=== PATIENT | female | born 1950 | race Caucasian/White ===

== ENCOUNTER 2020-05-25 15:27 | Inpatient (IN) | payer OTHER, MEDICARE, SELFPAY ==
[2020-05-25] VITALS (14 sets, daily range): BP systolic 109–150; BP diastolic 59–114; PULSE 68–185; RESP 15–52; TEMP 35.7–37; O2SAT 95–99; BMI 25.2
--- NOTE | ~2020-05-25 | XR_ITS ---
EXAMINATION: XR chest 1V portable INDICATION: Tachycardia and shortness of breath TECHNIQUE: Portable AP chest at 1556 hours COMPARISON: None available FINDINGS: There is mild atelectasis of the left lung base. No pleural effusion or pneumothorax is butch ntified. The cardiomediastinal silhouette is normal. 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 IMPRESSION: 1. Mild atelectasis of the left lung base. Reviewed, dictated and finalized at location A.
--- NOTE | 2020-05-25 15:42 | ECG_ITS ---
Measurements Intervals [place] Rate: 166 P: [place]: 0 QRS: -81 QRSD: 81 T: 48 QT: 256 QTc: 426 Interpretive Statements ATRIAL FIBRILLATION WITH RAPID VENTRICULAR RESPONSE VENTRICULAR PREMATURE COMPLEX LEFT AXIS DEVIATION CONSIDER ANTEROSEPTAL INFARCT, AGE INDETERMINATE BORDERLINE ST ABNORMALITY- ANTEROLAT/INF LEADS BASELINE ARTIFACT- I, II, III, AVR, AVL, AVF, V1-V2 ABNORMAL ECG Electronically Signed On 05-25-2020 16:47:50 CDT by Joshua Crawford D.O.
[2020-05-25] MEDS: SODIUM CHLORIDE 0.9% IV 1,000 ML 500 ML IV CONT (15:53)
[2020-05-25] MEDS: dilTIAZem HCl INJ 25 MG/5 ML VIAL 10 MG IV PUSH (15:53)
--- NOTE | 2020-05-25 15:56 | ED.ARRPALP ---
HPI - Arrhythmia/Palpitations General Chief Complaint: Arrhythmia/Palpitations Stated Complaint: abd pain Time Seen by Provider: 05/25/20 15:41 Source: patient Mode of arrival: ambulatory Limitations: no limitations History of Present Illness HPI narrative: Patient presents with palpitations and shortness of breath. Yesterday she had lower abdominal pain which she thought would be her diverticulitis. That pain has mostly resolved although she has a little bit of discomfort in her lower left back when she twists. She had no fever, chills or sweats. Then today she had palpitations and was coming in for, when she became short of breath. She has not had A. fib before. 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 complaint: rapid heart beat, heart racing and palpitations Onset (ago): hour(s) Duration: constant Severity: moderate Context: occurred during rest Arrhythmia history: other (None) Associated symptoms: denies other symptoms Treatments prior to arrival: other (None) Related Data Allergies Allergy/AdvReac Type Severity Reaction Status Date / Time No Known Allergies Allergy Verified 05/25/20 15:45 Review of Systems Review of Systems: Narrative: CONSTITUTIONAL: Denies fever, chills, or sweats. ENT: Denies rhinorrhea, congestion, sore throat, or otalgia. CARDIOVASCULAR: Denies chest pain, palpitations, or edema. RESPIRATORY: Denies cough or dyspnea. GASTROINTESTINAL: Denies abdominal pain, nausea, vomiting, or diarrhea. MUSCULOSKELETAL: Denies back pain, joint pain, or myalgia. NEUROLOGIC: Denies headache, numbness, or weakness. All systems reviewed & are unremarkable except as noted in HPI and below PMFSH Past Medical History Medical History (Updated 05/25/20 @ 16:35 by Merry Tinoco MD) Atrial fibrillation with rapid ventricular response Surgical History Surgical History (Updated 05/25/20 @ 16:08 by Merry Tinoco MD) History of knee surgery History of lumpectomy Social History Social History (Updated 05/25/20 @ 16:09 by Merry Tinoco MD) Smoking status: Former smoker Alcohol intake: current Alcohol use details: wine Substance use: former Exam Narrative: Exam Narrative: GENERAL: Well-appearing, well-nourished, and in no acute distress. Fast heart rate 180 HEAD: Normocephalic, atraumatic. EYES: PERRLA and EOMI. ENT: Nares clear, no rhinorrhea or epistaxis. Mucous membranes moist. NECK: Supple. CHEST: Clear to auscultation. No respiratory distress. HEART: Regular rate and rhythm. No murmur heard. Normal peripheral pulses. ABDOMEN: Soft, nontender, nondistended, normal active bowel sounds. EXTREMITIES: Normal range of motion. No edema. SKIN: Warm, dry, no rash. NEURO: No focal deficits. Alert and oriented x3. PSYCH: Normal mood and affect. Const: General: no acute distress and alert Orientation/consciousness: patient oriented x3 Course Reevaluation(s) Reevaluation #1: Went in the room to give the patient the update on her admission process. She said she is feeling so much better with her heart rate between 85 and 95. She understands that it may not go back to sinus rhythm. She is anxious to get back to work next week. Date: 05/25/20 Time: 17:15 Consultations Consultation #1: Call the child care provider on-call for consult for the new A. fib. Date: 05/25/20 Time: 16:09 Consultation #2: Called Julia and she accepts for Dr. Madsen. Date: 05/25/20 Time: 17:15 Vital Signs Vital signs: Vital Signs Pulse Rate 185 H 05/25/20 15:38 Respiratory Rate 52 H 05/25/20 15:38 Pulse Oximetry 97 05/25/20 15:38 Temperature 98.6 F 05/25/20 15:45 Pulse Rate 166 H 05/25/20 16:01 Respiratory Rate 15 05/25/20 16:01 Blood Pressure 112/80 05/25/20 16:01 Pulse Oximetry 98 05/25/20 16:01 MDM - Arrhythmia/Palpitations Medical Records Attestation: I reviewed the patient's medical records. Lab Data Attestation: I reviewed the patient's l
[2020-05-25 16:01] LABS: Basophils Absolute Auto 0.1 K/mm3 (0.0-0.1); Basophils Percent Auto 0.5 % (0.2-1.2); Eosinophils Absolute Auto 0.1 K/mm3 (0-0.3); Eosinophils Percent Auto 0.8 % (0-4.4); Hematocrit 45.5 % (37.0-47.0); Hemoglobin 15.9 g/dL (12.0-15.0); Immature Granulocyte Absolute 0.04 K/mm3 (0.00-0.031); Immature Granulocyte Percent A 0.4 % (0-0.5); Lymphocytes Absolute Auto 3.47 K/mm3 (0.9-3.2); Lymphocytes Percent Auto 32.8 % (18.3-44.2); Mean Corpuscular HGB Conc 34.9 g/dl (32-36); Mean Corpuscular Hemoglobin 32.4 pg (26-34); Mean Corpuscular Volume 92.9 fl (80-100); Mean Platelet Volume 9.3 fl (7.4-10.4); Monocytes Absolute Auto 0.9 K/mm3 (0.1-0.6); Neutrophils Absolute Auto 6.1 K/mm3 (1.3-6.7); Neutrophils Percent Auto 57.5 % (45.5-73.1); Platelet Count Result 341 k/mm3 (150-375); White Blood Count 10.6 K/mm3 (4.5-10.0)
[2020-05-25 16:11] LABS: INR 0.9; Prothrombin Time 12.2 Seconds (11.1-14.7)
[2020-05-25 16:21] LABS: Carbon Dioxide 22 mmol/L (22-30); Chloride 99 mmol/L (98-107); Potassium 3.2 mmol/L (3.4-5.0); Sodium 133 mmol/L (137-145)
[2020-05-25 16:22] LABS: Alanine Aminotransferase 23 U/L (4-35); Albumin Level 4.5 g/dL (3.5-5.1); Alkaline Phosphatase 86 U/L (38-126); Anion Gap 12 mmol/L (8-16); Aspartate Amino Transferase 26 U/L (14-36); Bilirubin,Total 0.6 mg/dL (0.2-1.3); Blood Urea Nitrogen 13 mg/dL (7-17); Calcium 9.4 mg/dL (8.4-10.2); Estimated Glomerular Filt Rate > 60; Glucose 192 mg/dL (65-105)
[2020-05-25 16:32] LABS: Troponin I < 0.012 ng/mL (0.000-0.034)
[2020-05-25 16:39] LABS: NT Pro B Type Natriuretic Pept 112 PG/ML (5-100)
[2020-05-25] MEDS: POTASSIUM CHLORIDE 10 MEQ TABLET PO (17:22)
--- NOTE | 2020-05-25 18:09 | PC.NURSE ---
This patient, Sydnee Price, was admitted to IMU Room 204-01. Patient/family oriented to hospital policies and general routines including ID bracelet, bed and alarms, visiting hours, pain management, procedures, bathroom and other care routines, personal items, smoking policy, room service/diet, and visiting hours. Valuables list has been completed. Information on how to activate the Rapid Response Team has been discussed. Patient/Family are encouraged to report perceived risks to care and to ask questions if they do not understand what they are told or what they should do.
[2020-05-25 20:05] LABS: Troponin I < 0.012 ng/mL (0.000-0.034)
--- NOTE | 2020-05-25 21:02 | PM.IMHP ---
H&P: HPI History of Present Illness Date/Time: 05/25/20 21:02 Chief complaint: a fib rvr Narrative: Sydnee Price is a 70 year old female Who has a history of having hypertension. But has not had any heart disease in the past. The patient presented to the emergency room with palpitations and shortness of breath. The patient stated that she does feel dizzy at times but thought that it was because of her constant mask wearing at her job. The patient stated that she also occasionally short of breath and occasionally feels like she has a little bit of twitching or fibrillation in her chest at times. She said that on she had some lower abdominal pain which she thought was diverticulitis she had some diarrhea and some right lower quadrant abdominal pain and thought it was just her diverticulitis. She also had some lower back pain. She had no fever chills or sweats. 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 She has had other students in patients that have, positive for covid 19. 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 She was afebrile when she came Into the ER. The patient was found to be in AFib with RVR. She was started on a Cardizem drip and converted the emergency room before coming up to IMU. When I saw her heart rate was already controlled in the 80s. She had no discomfort. Patient takes hydrochlorothiazide and her potassium was found to be 3.2. She was supplemented with potassium as well. I spent approximately 40 minutes with the patient. Date of service is 05/25/2020. Review of Systems Review of Systems: All systems reviewed & are unremarkable except as noted in HPI and below Constitutional: Constitutional: Reports as per HPI and Reports no additional constitutional complaints Eyes: Eyes: Reports as per HPI and Reports no additional eye complaints ENT: Reports system reviewed and no additional complaints, except as documented and Reports Normal hearing present Cardiovascular: Cardiovascular: Reports no additional cardiovascular complaints Respiratory: Respiratory: Reports no additional respiratory complaints and Reports no additional respiratory complaints Gastrointestinal: Gastrointestinal: Reports as per HPI and Reports no additional gastrointestinal complaints Musculoskeletal: Musculoskeletal: Reports no additional musculoskeletal complaints Integumentary/Breasts: Skin/Breast: Reports system reviewed and no additional complaints, except as docu and Reports as per HPI Neurologic: Reports system reviewed and no additional complaints, except as documented, Reports as per HPI and Reports Normal hearing present Psychiatric: Psychiatric: Reports no additional psychiatric complaints and Reports as per HPI Endocrine: Endocrine: Reports no additional endocrine complaints Hematologic/Lymphatic: Hematologic/Lymphatic: Reports no additional hematologic/lymphatic complaints Allergic/Immunologic: Allergic/Immunologic: Reports no additional allergic/immunologic complaints [facility] Past Medical History Medical History (Updated 05/25/20 @ 21:09 by Julia Kaur NP) Atrial fibrillation with rapid ventricular response Now in sinus rhythm. Hiatal hernia with GERD without esophagitis Hypertension Plantar fasciitis Surgical History Surgical History (Updated 05/25/20 @ 21:09 by Julia Kaur NP) History of knee surgery meniscus repair left knee History of lumpectomy left breast benign Family History Family History Father Hypertension Mother Hypertension Social History Social History (Updated 05/25/20 @ 21:09 by Julia Kaur NP) Social History: the patient is single she has 2 children a son daughter. She desires to be a full code. She does not have durable power managing attorney for healthcare. Her daughter is a nurse. She rarely drinks. She quit smoking 7 years ago. She has not
[2020-05-25] MEDS: ENOXAPARIN 80 MG/0.8 ML SYRINGE 65 MG SUB-Q (21:58)
[2020-05-25 22:31] LABS: Troponin I < 0.012 ng/mL (0.000-0.034)
[2020-05-26] VITALS (11 sets, daily range): BP systolic 104–123; BP diastolic 61–70; PULSE 66–79; RESP 18–22; TEMP 35.9–36.8; O2SAT 94–97
--- NOTE | 2020-05-26 | ECHO_ITS ---
Patient Info Name: Sydnee Price Age: 70 years : 1950 Gender: Female Ht: 64 in Wt: 146 lbs BSA: 1.74 m2 HR: 72 bpm BP: 104 / 61 mmHg Heart Rhythm: Sinus Rhythm Technical Quality: Good Exam Date: 05/26/2020 7:55 AM Exam Location: [facility] Pulmonary Patient Status: Inpatient Admit Date: 05/25/2020 Staff Ordering Physician: Julia Kaur NP Manager Of Program: Jose Le RDCS, RT Attending Provider: Sofia Madsen MD Referring Physician: Natasha STARKS; Exam Type: CA echo doppler color flow Study Info Indications I48.0 - Paroxysmal atrial fibrillation Complete two-dimensional, color flow and Doppler transthoracic echocardiogram is performed. Summary 1. Left ventricular systolic function is normal, estimated at 65-70%. 2. There is no increased left ventricular wall thickness. 3. Technically difficult study with limited views. 4. The left ventricular diastolic function is normal. 5. There is no aortic valve stenosis. 6. There is mild mitral valve regurgitation. 7. No pulmonary hypertension, estimated pulmonary arterial systolic pressure is 25 mmHg. Left Ventricle Left ventricular chamber dimension is normal. Left ventricular systolic function is normal, estimated at 65-70%. There is no increased left ventricular wall thickness. The left ventricular diastolic function is normal. Global longitudinal strain is normal at -19 %. Technically difficult study with limited views. Right Ventricle Right ventricular chamber dimension is normal. Right ventricular systolic function is normal. Left Atria Left atrial chamber dimension is normal. Right Atria Right atrial chamber dimension is normal. Aortic Valve The aortic valve is not well visualized. There is no aortic valve stenosis. There is no aortic valve regurgitation. Pulmonic Valve The pulmonic valve is not well visualized. Mitral Valve The mitral valve has thickened leaflets. There is mild mitral valve regurgitation. The mitral valve annulus is mildly calcified. Tricuspid Valve The tricuspid valve leaflets are normal. There is trace tricuspid valve regurgitation. No pulmonary hypertension, estimated pulmonary arterial systolic pressure is 25 mmHg. Pericardium/Pleural The pericardium appears normal. There is no pericardial effusion. Inferior Vena Cava Normal inferior vena cava with >50% collapse upon inspiration consistent with normal right atrial pressure, 5 mmHg. Aorta The aortic root size at the sinus of Valsalva is normal. Left Ventricular Outflow Tract Name Value Normal LVOT Doppler LVOT Peak Gradient 3 mmHg LVOT Mean Gradient 2 mmHg LVOT VTI 19 cm LVOT VTI/AV VTI Ratio 0.8 Mitral Valve Name Value Normal MV Doppler MV Decel [place] 357 cm/s2 MV PHT 56 ms MV Area (PHT)
[2020-05-26 04:21] LABS: Basophils Percent Auto 0.3 % (0.2-1.2); Eosinophils Absolute Auto 0.1 K/mm3 (0-0.3); Eosinophils Percent Auto 1.4 % (0-4.4); Hematocrit 38.7 % (37.0-47.0); Hemoglobin 13.5 g/dL (12.0-15.0); Immature Granulocyte Absolute 0.02 K/mm3 (0.00-0.031); Immature Granulocyte Percent A 0.2 % (0-0.5); Lymphocytes Absolute Auto 3.32 K/mm3 (0.9-3.2); Lymphocytes Percent Auto 37.5 % (18.3-44.2); Mean Corpuscular HGB Conc 34.9 g/dl (32-36); Mean Corpuscular Volume 94.6 fl (80-100); Mean Platelet Volume 9.3 fl (7.4-10.4); Monocytes Absolute Auto 0.8 K/mm3 (0.1-0.6); Monocytes Percent Auto 9.1 % (2.6-8.5); Neutrophils Absolute Auto 4.6 K/mm3 (1.3-6.7); Neutrophils Percent Auto 51.5 % (45.5-73.1); Platelet Count Result 226 k/mm3 (150-375); Red Blood Count 4.09 M/mm3 (4.2-5.4); Red Cell Distribution Width 12.1 % (11.5-14.5); White Blood Count 8.9 K/mm3 (4.5-10.0)
[2020-05-26 04:34] LABS: Alanine Aminotransferase 18 U/L (4-35); Albumin Level 3.6 g/dL (3.5-5.1); Alkaline Phosphatase 64 U/L (38-126); Anion Gap 6 mmol/L (8-16); Aspartate Amino Transferase 21 U/L (14-36); Bilirubin,Total 0.7 mg/dL (0.2-1.3); Blood Urea Nitrogen 14 mg/dL (7-17); Calcium 8.8 mg/dL (8.4-10.2); Carbon Dioxide 23 mmol/L (22-30); Chloride 105 mmol/L (98-107); Estimated CRCL calculation 78 ml/min; Estimated Glomerular Filt Rate > 60; Glucose 105 mg/dL (65-105); Magnesium 1.9 mg/dL (1.6-2.3); Potassium 3.1 mmol/L (3.4-5.0); Sodium 134 mmol/L (137-145)
[2020-05-26] MEDS: ENOXAPARIN 80 MG/0.8 ML SYRINGE 65 MG SUB-Q (09:28)
[2020-05-26] MEDS: POTASSIUM CHLORIDE 20 MEQ TABLET 40 MEQ PO (09:28)
[2020-05-26] MEDS: PANTOPRAZOLE 40 MG TABLET PO (09:28)
--- NOTE | 2020-05-26 12:16 | PM.IMPN ---
Progress Note: A&P Assessment and Plan (1) Atrial fibrillation with rapid ventricular response: Code(s): I48.91 - Unspecified atrial fibrillation Status: Acute Assessment and Plan: Patient converted to sinus rhythm shortly after arrival while on Cardizem drip. [id number] score 3. Subcu Lovenox started. Diltiazem drip stopped. Will add a beta-polo. Echo pending. No clincial evidence of VTE. TSH normal. Trop negative x3. Will change lovenox to Eliquis (2) Hypertension: Code(s): I10 - Essential (primary) hypertension Status: Chronic Assessment and Plan: Patient's blood pressure was reviewed on 05/26/20 Blood pressure remains well controlled. Will continue to hold hydrochlorothiazide; change to metoprolol. (3) Hiatal hernia with GERD without esophagitis: Code(s): K44.9 - Diaphragmatic hernia without obstruction or gangrene; K21.9 - Gastro-esophageal reflux disease without esophagitis Status: Chronic Assessment and Plan: Stable. Continue PPI. (4) Hypokalemia: Code(s): E87.6 - Hypokalemia Status: Acute Assessment and Plan: She had some diarrhea a couple days ago and also on HCTZ. Diarrhea has stopped. Potassium replaced but repeat level still low at 3.1 today. Mag 1.9. Replace potassium again. HCTZ on hold. Subjective Date/time seen: 05/26/20 12:16 Interval history: 70yo female with HTN here for palpitations and found to have AFib with RVR. She has been having brief episodes of fluttering but nothing prolonged. She denies CP. No n/v. No alcohol use. No altered taste. Exam Narrative: Exam Narrative: AF 112/70 76 22 94% ra Gen - NARD Chest - CTA bilateally CV - RRR S1/S2; Tele showing NSR Abd -s oft, NT, ND, +BS Ext - no pedal edema Neuro - nonfocal Psych - nml mood and affect Skin - warm and dry Objective Data Vital Signs Vital Signs: Vital Signs - 24 hr 05/25/20 15:38 05/25/20 15:39 05/25/20 15:45 Temperature 98.6 F Pulse Rate 185 H 166 H 164 H Respiratory Rate 52 H 52 H 18 Blood Pressure 133/106 H 150/114 H Pulse Oximetry 97 97 97 05/25/20 15:47 05/25/20 15:57 05/25/20 16:00 Temperature Pulse Rate 178 H 143 H 151 H Respiratory Rate 52 H 52 H Blood Pressure 109/82 109/82 Pulse Oximetry 95 96 05/25/20 16:01 05/25/20 17:59 05/25/20 18:35 Temperature 97.9 F Pulse Rate 166 H 76 76 Respiratory Rate 15 20 18 Blood Pressure 112/80 126/66 125/73 Pulse Oximetry 98 98 97 05/25/20 18:45 05/25/20 19:53 05/25/20 20:00 Temperature 96.2 F L Pulse Rate 98 72 77 Respiratory Rate 20 Blood Pressure 125/63 Pulse Oximetry 96 05/25/20 22:00 05/25/20 23:37 05/26/20 00:00 Temperature 97.9 F Pulse Rate 68 88 66 Respiratory Rate 20 Blood Pressure 114/59 L Pulse Oximetry 96 05/26/20 02:00 05/26/20 04:00 05/26/20 04:34 Temperature 97.9 F Pulse Rate 66 66 66 Respiratory Rate 18 Blood Pressure 104/61 Pulse Oximetry 97 05/26/20 06:00 05/26/20 08:00 05/26/20 10:00 Temperature 97.2 F L Pulse Rate 67 69 76 Respiratory Rate 22 H Blood Pressure 112/70 Pulse Oximetry 94 Intake/Output Intake/Output: Intake & Output 05/23/20 05/24/20 05/25/20 05/26/20 23:59 23:59 23:59 23:59 Intake Total 120 540 Balance 120 540 Meds/Results Medications: Active Medications Generic Name Dose Route Start Last Admin Trade Name Freq PRN Reason Stop Dose Admin Acetaminophen 650 mg 05/25/20 16:46 Tylenol Tablet PO Q4H PRN Mild Pain (1-3) or Fever Enoxaparin Sodium 65 mg 05/25/20 21:00 05/26/20 09:28 Lovenox SUB-Q 65 mg Q12HR PORTILLO Administration Ondansetron HCl 4 mg 05/25/20 16:46 Zofran Inj IV PUSH Q4H PRN Nausea Pantoprazole Sodium 40 mg 05/26/20 09:00 05/26/20 09:28 Protonix PO 06/25/20 09:01 40 mg DAILY PORTILLO Administration Radiology Results: ITS Impressions Chest X-Ray
[2020-05-26] MEDS: METOPROLOL TARTRATE 12.5 MG TABLET PO (13:32)
--- NOTE | 2020-05-26 14:57 | PM.CNCAR ---
Assessment and Plan Assessment and plan (1) Atrial fibrillation with rapid ventricular response: Code(s): I48.91 - Unspecified atrial fibrillation Status: Acute Assessment and Plan: Converted to sinus rhythm maintained on metoprolol. Continue metoprolol tartrate increased to 25 mg twice daily. Continue Eliquis 5 mg twice daily. CHADS2 Vasc score 3 (age, hypertension, female sex). Constipation on pathophysiology, management options, bleeding versus CVA risk. Patient verbalized understanding. Review 2D echocardiogram. Stable for discharge from cardiac perspective. Patient is asymptomatic at this time. Follow-up in the office in next 4 weeks. (2) Hypertension: Code(s): I10 - Essential (primary) hypertension Status: Chronic Assessment and Plan: Stable. HCTZ discontinued. Metoprolol continued. Monitor as an outpatient. (3) Hypokalemia: Code(s): E87.6 - Hypokalemia Status: Acute Assessment and Plan: Repleted. History of Present Illness History of Present Illness Consult date/time: date of service:05/26/20 14:57 Cardiology consultation at the request of Dr. Serrano for our opinion regarding atrial fibrillation with rapid ventricular response. Requesting physician: Jakub Serrano MD Consult reason: atrial fibrillation Reason For Visit: a fib rvr Narrative: patient is a very pleasant 70-year-old female with a history of hypertension, diverticulitis Pedro presented the emergency depart with rapid heart rate/palpitations, lightheadedness and eventual shortness of breath. 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 She states on Sunday she experienced some abdominal discomfort with diarrhea attributed to a mild flare of diverticulitis Which she has experienced in the past. No bleeding. No melena or bright red blood per rectum. No fevers, chills or vomiting. Upon arrival she was found to be in atrial fibrillation with very rapid ventricular response up to 180s-190's started on diltiazem infusion. She converted shortly thereafter and has maintained sinus rhythm subsequently. Her potassium was low 3.1 and was supplemented. She has no complaints and feels well. She has no prior known history of atrial fibrillation although she states he has had intermittent episodes of palpitations or fluttering in the chest over the years but were brief and without associated symptoms. No edema, orthopnea or PND. Patient states she knows she has snored at times in the past but no apnea or prior diagnosis of CARMEN. She had been compliant with the hydrochlorothiazide and potassium supplementation as an outpatient. Serial troponins negative, TSH 1.960. Review of Systems Review of Systems: All systems reviewed & are unremarkable except as noted in HPI and below Constitutional: Constitutional: Reports as per HPI, Reports no additional constitutional complaints and Reports fatigue Eyes: Eyes: Reports as per HPI and Reports no additional eye complaints ENT: Reports system reviewed and no additional complaints, except as documented and Reports as per HPI Cardiovascular: Cardiovascular: Reports as per HPI, Reports no additional cardiovascular complaints and Reports lightheadedness Respiratory: Respiratory: Reports as per HPI, Reports no additional respiratory complaints and Reports dyspnea Gastrointestinal: Gastrointestinal: Reports as per HPI, Reports no additional gastrointestinal complaints, Reports diarrhea, Denies nausea and Denies vomiting Genitourinary: Genitourinary: Reports as per HPI Musculoskeletal: Musculoskeletal: Reports no additional musculoskeletal complaints and Reports as per HPI Integumentary/Breasts: Skin/Breast: Reports system reviewed and no additional complaints, except as docu, Reports as per HPI, Denies rash an
--- NOTE | 2020-05-26 17:33 | PM.DS ---
DS: Admitting Diagnosis Admitting Diagnosis Admitting Diagnosis: a fib rvr DS: Discharge Diagnosis Discharge Diagnosis (1) Atrial fibrillation with rapid ventricular response: Code(s): I48.91 - Unspecified atrial fibrillation Status: Acute Assessment and Plan: Patient converted to sinus rhythm shortly after arrival after starting Cardizem drip. [id number] score 3. Subcu Lovenox started. Diltiazem drip stopped. Beta-polo added. Echo pending. No clincial evidence of VTE. TSH normal. Trop negative x3. Changed lovenox to Eliquis (2) Hypertension: Code(s): I10 - Essential (primary) hypertension Status: Chronic Assessment and Plan: Patient's blood pressure was reviewed Blood pressure remains well controlled. Will continue to hold hydrochlorothiazide; changed to metoprolol. (3) Hiatal hernia with GERD without esophagitis: Code(s): K44.9 - Diaphragmatic hernia without obstruction or gangrene; K21.9 - Gastro-esophageal reflux disease without esophagitis Status: Chronic Assessment and Plan: Stable. Continued PPI. (4) Hypokalemia: Code(s): E87.6 - Hypokalemia Status: Acute Assessment and Plan: She had some diarrhea a couple days ago and also on HCTZ. Diarrhea has stopped. Potassium replaced but repeat level still low at 3.1 today. Mag 1.9. Replace potassium again. HCTZ on hold. DS: Summary Hospital Course Reason for hospitalization: 70yo female here for palpitations and found to have AFib. Please see H&P for details. Hospital Course: As above Time Spent with Patient Time attestation: Total time spent providing and/or coordinating discharge services:32 minutes Time spent: Greater than 30 minutes Exam Narrative: Exam Narrative: AF 112/70 76 22 94% ra Gen - NARD Chest - CTA bilateally CV - RRR S1/S2; Tele showing NSR Abd -s oft, NT, ND, +BS Ext - no pedal edema Neuro - nonfocal Psych - nml mood and affect Skin - warm and dry DS: Data Data Completed and Pending Labs on day of discharge: Labs from last 24 hours 05/26/20 05/26/20 05/26/20 04:09 04:09 04:09 WBC 8.9 RBC 4.09 L Hgb 13.5 Hct 38.7 MCV 94.6 MCH 33.0 MCHC 34.9 RDW 12.1 Plt Count 226 MPV 9.3 Immature Gran % (Auto) 0.2 Neut % (Auto) 51.5 Lymph % (Auto) 37.5 [place] % (Auto) 9.1 H Eos % (Auto) 1.4 Baso % (Auto) 0.3 Lymph # (Auto) 3.32 H [place] # (Auto) 0.8 H Eos # (Auto) 0.1 Baso # (Auto) 0.0 Abs Immat Gran (auto) 0.02 Absolute Neuts (auto) 4.6 Absolute Nucleated RBC 0.0 Nucleated RBC % 0.0 Sodium 134 L Potassium 3.1 L Chloride 105 Carbon Dioxide 23 Anion Gap 6 L BUN 14 Creatinine 0.50 L Estim Creat Clear Calc 78 Estimated GFR > 60 Glucose 105 Calcium 8.8 Magnesium 1.9 Total Bilirubin 0.7 AST 21 ALT 18 Alkaline Phosphatase 64 Troponin I Total Protein 6.0 L Albumin 3.6 TSH (Reflex) 1.960 05/25/20 05/25/20 21:52 18:56 WBC RBC Hgb Hct MCV MCH MCHC RDW Plt Count MPV Immature Gran % (Auto) Neut % (Auto) Lymph % (Auto) [place] % (Auto) Eos % (Auto) Baso % (Auto) Lymph # (Auto) [place] # (Auto) Eos # (Auto) Baso # (Auto) Abs Immat Gran (auto) Absolute Neuts (auto) Absolute Nucleated RBC Nucleated RBC % Sodium Potassium Chloride Carbon Dioxide Anion Gap BUN Creatinine Estim Creat Clear Calc Estimated GFR Glucose Calcium Magnesium Total Bilirubin AST ALT Alkaline Phosphatase Troponin I < 0.012 < 0.012 Total Protein Albumin TSH (Reflex) Discharge Plan Discharge Attending physician on discharge: Jakub Serrano Consulting providers: Ovidio Liriano Discharging Clinician: Jakub Serrano Anticipated Discharge Date/Time: 05/26/20 17:35 Patient Disposition: Home, Self-Care
--- NOTE | 2020-06-02 07:37 | PC.NURSE ---
ECHO results reviewed by Dr. Serrano and faxed to Dr. Oates.
== END 2020-05-26 18:30 | disposition home or self-care (01) | DRG 310 ==
LOC: ANHED 17:26 → ANHIMU 05-26 06:44
PROVIDERS: Nurse Practitioner; Admitting Provider Family Medicine; Emergency Provider Emergency Medicine; PCP Internal Medicine Infectious Disease; Visit Provider Internal Medicine
DX: I48.91 Unspecified atrial fibrillation (principal); E87.6 Hypokalemia; I10 Essential (primary) hypertension; K44.9 Diaphragmatic hernia without obstruction or gangrene; K21.9 Gastro-esophageal reflux disease without esophagitis; Z79.899 Other long term (current) drug therapy; Z87.891 Personal history of nicotine dependence
CPT/HCPCS: 36415; 71045; 80053; 83735; 83880; 84443; 84484; 85025; 85610; 93005; 93306; 96374; 99285; A9270; J1650; J7030

== ENCOUNTER 2020-09-01 22:01 | Emergency (ER) | payer OTHER, SELFPAY ==
--- NOTE | ~2020-09-01 | XR_ITS ---
EXAMINATION: XR chest 1V portable DATE: 09/01/2020 22:32 INDICATION: Atrial fibrillation. Palpitations. TECHNIQUE: frontal view of the chest was obtained. COMPARISON: Chest radiograph dated 05/25/2020 FINDINGS: Unchanged mild discoid atelectasis/scarring at the lateral left lower lung zone. Pulmonary vascular c ongestion and mild increased perihilar interstitial pattern. No other focal airspace opacities, pleur al effusion or pneumothorax. The cardiomediastinal silhouette is normal. Mild degenerative skeletal c hanges in the spine and both shoulders. IMPRESSION: 1. Pulmonary vascular congestion and mild increased perihilar interstitial pattern most likely relate d to mild pulmonary edema with differential including less likely reactive airway disease/asthma or b ronchitis/pneumonia. Reviewed, dictated and finalized at location . [facility] IMPRESSION: 1. Pulmonary vascular congestion and mild increased perihilar interstitial kathe radha most likely related to mild pulmonary edema with differential including les s likely reactive airway disease/asthma or bronchitis/pneumonia.
[2020-09-01 21:58] VITALS: BP 133/66; PULSE 110; RESP 16; TEMP 37; O2SAT 95
--- NOTE | 2020-09-01 22:12 | ECG_ITS ---
Measurements Intervals [place] Rate: 62 P: 268 DC: 160 QRS: -53 QRSD: 93 T: 72 QT: 306 QTc: 311 Interpretive Statements SINUS RHYTHM WITH SHORT RUN OF ATRIAL TACHYCARDIA LEFT AXIS DEVIATION CANNOT RULE OUT SEPTAL INFARCT, AGE INDETERMINATE ABNORMAL ECG Electronically Signed On 09-02-2020 8:49:47 FORM STRIPPER by Joshua Crawford D.O.
[2020-09-01 22:19] VITALS: PULSE 132
[2020-09-01] MEDS: METOPROLOL TARTRATE INJ 5 MG/5 ML VIAL IV PUSH (22:19)
[2020-09-01 22:31] LABS: Basophils Absolute Auto 0.1 K/mm3 (0.0-0.1); Basophils Percent Auto 0.6 % (0.2-1.2); Eosinophils Absolute Auto 0.1 K/mm3 (0-0.3); Eosinophils Percent Auto 1.1 % (0-4.4); Hematocrit 40.9 % (37.0-47.0); Hemoglobin 14.1 g/dL (12.0-15.0); Immature Granulocyte Absolute 0.03 K/mm3 (0.00-0.031); Immature Granulocyte Percent A 0.3 % (0-0.5); Lymphocytes Absolute Auto 2.98 K/mm3 (0.9-3.2); Lymphocytes Percent Auto 28.1 % (18.3-44.2); Mean Corpuscular HGB Conc 34.5 g/dl (32-36); Mean Corpuscular Hemoglobin 32.9 pg (26-34); Mean Corpuscular Volume 95.3 fl (80-100); Mean Platelet Volume 9.4 fl (7.4-10.4); Monocytes Absolute Auto 0.7 K/mm3 (0.1-0.6); Monocytes Percent Auto 6.9 % (2.6-8.5); Neutrophils Absolute Auto 6.7 K/mm3 (1.3-6.7); Platelet Count Result 246 k/mm3 (150-375); Red Blood Count 4.29 M/mm3 (4.2-5.4); Red Cell Distribution Width 12.4 % (11.5-14.5); White Blood Count 10.6 K/mm3 (4.5-10.0)
[2020-09-01 22:41] LABS: INR 0.9; Prothrombin Time 12.8 Seconds (11.1-14.7)
[2020-09-01 22:42] LABS: Partial Thromboplastin Time 27.5 SECONDS (22.3-36.8)
[2020-09-01 22:47] LABS: Alanine Aminotransferase 23 U/L (4-35); Albumin Level 3.8 g/dL (3.5-5.1); Alkaline Phosphatase 83 U/L (38-126); Anion Gap 6 mmol/L (8-16); Aspartate Amino Transferase 27 U/L (14-36); Bilirubin,Total 0.3 mg/dL (0.2-1.3); Blood Urea Nitrogen 19 mg/dL (7-17); Calcium 9.1 mg/dL (8.4-10.2); Carbon Dioxide 25 mmol/L (22-30); Chloride 106 mmol/L (98-107); Estimated CRCL calculation 66 ml/min; Estimated Glomerular Filt Rate > 60; Glucose 142 mg/dL (65-105); Magnesium 1.8 mg/dL (1.6-2.3); Potassium 3.4 mmol/L (3.4-5.0); Sodium 137 mmol/L (137-145)
[2020-09-01 22:56] LABS: NT Pro B Type Natriuretic Pept 387 PG/ML (5-100)
[2020-09-01 22:59] LABS: Troponin I < 0.012 ng/mL (0.000-0.034)
[2020-09-01 23:12] VITALS: BP 105/60; PULSE 96; RESP 17; O2SAT 97
[2020-09-01 23:46] LABS: Add Urine Microscopic? YES; Appearance Urine Clear (Clear); Bilirubin Urine Negative (Negative); Blood Urine Negative (Negative); Color Urine Colorless (Yellow); Glucose Urine UA Negative (Negative); Ketones Urine Negative (Negative); Leukocyte Esterase Ur 2+ LEU/UL (Negative); Mucus Urine Rare /lpf; Nitrate Urine Negative (Negative); Protein Urine Negative (Negative); Specific Grav Ur 1.009 (1.001-1.035); Squamous Epithelial Cell Urine Occasional /hpf (Few); Urobilinogen Urine Negative mg/dL (<2.0)
--- NOTE | 2020-09-02 00:01 | ECG_ITS ---
Measurements Intervals [place] Rate: 22 P: 75 CA: 215 QRS: 231 QRSD: 85 T: 72 QT: 385 QTc: 234 Interpretive Statements SINUS BRADYCARDIA WITH FIRST DEGREE AV BLOCK RIGHT AXIS DEVIATION CANNOT RULE OUT SEPTAL INFARCT, AGE INDETERMINATE ABNORMAL ECG Electronically Signed On 09-02-2020 8:52:54 YARD [place]OC[place] by Joshua Crawford D.O.
--- NOTE | 2020-09-02 00:03 | ED.ARRPALP ---
HPI - Arrhythmia/Palpitations General Chief Complaint: Arrhythmia/Palpitations Stated Complaint: afib Time Seen by Provider: 09/01/20 22:04 History of Present Illness HPI narrative: Patient is a 70-year-old female who presents the emergency department with chief complaint of atrial fibrillation. Patient reports that she has prior history of paroxysmal atrial fibrillation and recently had her dose of Lopressor reduced. Patient states that she was taking a shower and suddenly felt as though her heart started beating fast the patient was found to be in atrial fibrillation with rapid ventricular response by EMS and was transported to the emergency department. Patient states she feels as though she felt a little lightheaded when her heart was beating extremely fast but it has come down somewhat since she arrived to the emergency department. Related Data Home Medications Medication Instructions Recorded Confirmed omeprazole 20 mg PO DAILY 05/25/20 05/25/20 Allergies Allergy/AdvReac Type Severity Reaction Status Date / Time succinylcholine Allergy Flushing Verified 05/25/20 18:47 Review of Systems Review of Systems: Narrative: CONSTITUTIONAL: Denies fever, chills, or sweats. EYES: Denies visual changes, redness, or discharge. ENT: Denies rhinorrhea, congestion, sore throat, or otalgia. CARDIOVASCULAR: Denies chest pain, palpitations, or edema. RESPIRATORY: Denies cough or dyspnea. GASTROINTESTINAL: Denies abdominal pain, nausea, vomiting, or diarrhea. GENITOURINARY: Denies dysuria or hematuria. SKIN: Denies rash or itching. MUSCULOSKELETAL: Denies back pain, joint pain, or myalgia. NEUROLOGIC: Denies headache, numbness, or weakness. PSYCHIATRIC: Denies anxiety or depression. A 10 system review of systems was completed on the patient and is negative except for what is stated in the HPI. Nursing and ancillary documentation was reviewed. [facility] Past Medical History Medical History (Updated 09/02/20 @ 00:07 by Jakub Mccrary MD) Atrial fibrillation with rapid ventricular response Now in sinus rhythm. Hiatal hernia with GERD without esophagitis Hypertension Plantar fasciitis Surgical History Surgical History History of knee surgery meniscus repair left knee History of lumpectomy left breast benign Family History Family History Father Hypertension Mother Hypertension Social History Social History Social History: the patient is single she has 2 children a son daughter. She desires to be a full code. She does not have durable power senior attorney for healthcare. Her daughter is a nurse. She rarely drinks. She quit smoking 7 years ago. She has not used marijuana since the 70s. No illicit drugs. Smoking packs per day: 1 Smoking cigarettes per day: 20.0 Years smoked: 15 Smoking pack-years: 15.00 Smoking status: Former smoker Tobacco type: cigarettes Alcohol intake: never Substance use: never Spiritual care concerns: No Exam Narrative: Exam Narrative: GENERAL: Well-appearing, well-nourished, and in no acute distress. HEAD: Normocephalic, atraumatic. EYES: PERRLA and EOMI. ENT: Nares clear, no rhinorrhea or epistaxis. Mucous membranes moist. NECK: Supple. CHEST: Clear to auscultation. No respiratory distress. HEART: Irregular tachycardic rate and rhythm. No murmur heard. Normal peripheral pulses. ABDOMEN: Soft, nontender, nondistended, normal active bowel sounds. EXTREMITIES: Normal range of motion. No edema. SKIN: Warm, dry, no rash. NEURO: No focal deficits. Alert and oriented x3. PSYCH: Normal mood and affect. Course Course Emergency Course: Initial EKG showed atrial fibrillation with a rate of 62. There are no evidence of ST elevation or ST depression. monitoring engineer was showing
[2020-09-02 00:23] VITALS: BP 106/66; PULSE 73; RESP 15; O2SAT 96
== END 2020-09-02 00:50 | disposition home or self-care (01) ==
PROVIDERS: Emergency Provider Emergency Medicine; PCP Internal Medicine Infectious Disease
DX: I48.0 Paroxysmal atrial fibrillation (principal); I10 Essential (primary) hypertension; Z87.891 Personal history of nicotine dependence; I47.1 Supraventricular tachycardia; R94.31 Abnormal electrocardiogram [ECG] [EKG]; I44.0 Atrioventricular block, first degree; R00.1 Bradycardia, unspecified; R09.89 Other specified symptoms and signs involving the circulatory and respiratory systems; R91.8 Other nonspecific abnormal finding of lung field; Z79.01 Long term (current) use of anticoagulants
CPT/HCPCS: 36415; 71045; 80053; 81001; 83735; 83880; 84484; 85025; 85610; 85730; 87086; 87088; 93005; 96374; 99284